=== PATIENT | male | born 1955 | race Caucasian/White ===

== ENCOUNTER 2017-05-17 09:43 | Day surgery (SDC) | payer BC ==
[2017-05-17] MEDS ORDERED: Sodium Chloride 0.9% 10 ML Syringe FLUSH PRN (10:30)
[2017-05-17] MEDS ORDERED: Midazolam 1 MG/ML 2 ML SDV IV ONE (13:30)
[2017-05-17] MEDS ORDERED: Propofol 200 MG/20 ML SDV IV ONE (13:30)
[2017-05-17] MEDS ORDERED: Acetaminophen 500 MG Tab PO ONE (14:44)
[2017-05-17 15:26] VITALS: BP 128/82
--- NOTE | 2017-05-18 11:24 | OR ---
DATE OF OPERATION: 05/17/2017 SURGEON: Ambrocio Ravi MD PREOPERATIVE DIAGNOSIS: Cataract, right eye. POSTOPERATIVE DIAGNOSIS: Cataract, right eye. OPERATION PERFORMED: Phacoemulsification of cataract right eye with placement of an Jamil, model ZCB00, 20.0 diopter, foldable, posterior chamber intraocular lens. DISH MACHINE OPERATOR: None. DESCRIPTION OF PROCEDURE: Peribulbar anesthetic was performed using a mixture of 2% lidocaine with Wydase. The patient was prepped and draped in the usual fashion. A 3 mm fornix based conjunctival flap was performed at the 10 o'clock position. Hemostasis was obtained using diathermy, and a 2.8 mm grooved near clear corneal incision was then made. A stab incision was made into the anterior chamber at the 12 o'clock position and a second stab wound incision was made underlying the grooved near clear corneal incision. Viscoat was instilled into the anterior chamber, and a continuous tear capsulotomy was performed. Hydrodissection was accomplished with balanced salt solution, and the nucleus was removed in a divide and conquer fashion. The remaining cortical material was removed with the irrigation and aspiration unit. Viscoat was instilled into the anterior chamber, and an Jamil, model ZCB00, 20.0 diopter, foldable, posterior chamber intraocular lens was placed into the capsular bag, the haptics being positioned at the 1 and 7 o'clock positions. The residual Viscoat was removed from the anterior chamber and the anterior chamber reformed with balanced salt solution. The wound was checked and noted to be watertight. The conjunctiva was secured in its original position with diathermy. Alphagan and Maxitrol Ointment were then placed into the patient's eye. The patient tolerated the procedure well and it was without complication. Elapsed phacoemulsification time was 24.3 seconds. Postoperative instructions as related to activities as well as medications were reviewed with the patient. The patient was instructed to return to see me on the day following surgery for the first postoperative check. The patient was also instructed to contact me prior to that time if he were to have any problems. ADDENDUM: Because of minor patient discomfort, 0.3 mL of 1% non-preserved lidocaine was instilled into the anterior chamber. This resolved the patient's discomfort. /[id number] 2022 DEG/MODL CC: ERFEN CORONADO, OD [address] [place] [id number] MOUSTAPHA MANZO CNP [facility]ITAL[facility]
== END 2017-05-17 15:20 | disposition home or self-care (01) ==
LOC: FB.SDS 09:43
PROVIDERS: ATTEND Ophthalmology
DX: H26.9 Unspecified cataract (principal); E03.9 Hypothyroidism, unspecified; E78.5 Hyperlipidemia, unspecified; Z87.891 Personal history of nicotine dependence
CPT/HCPCS: 66984; A9270; C1780; J2250; J2704; J7050

== ENCOUNTER 2017-06-14 08:55 | Day surgery (SDC) | payer BC ==
[2017-06-14] MEDS ORDERED: Sodium Chloride 0.9% 10 ML Syringe FLUSH PRN (09:45)
[2017-06-14] MEDS ORDERED: Lidocaine 1% 30 ML SDV INJECT ONE (13:00)
[2017-06-14] MEDS ORDERED: Midazolam 1 MG/ML 2 ML SDV IV ONE (13:00)
[2017-06-14] MEDS ORDERED: Propofol 200 MG/20 ML SDV IV ONE (13:00)
[2017-06-14 13:55] VITALS: BP 126/91
--- NOTE | 2017-06-15 09:37 | OR ---
DATE OF OPERATION: 06/14/2017 SURGEON: Ambrcoio Ravi MD PREOPERATIVE DIAGNOSIS: Cataract left eye. POSTOPERATIVE DIAGNOSIS: Same. OPERATION PERFORMED: Phacoemulsification of cataract left eye with placement of an Jamil, model ZCB00, 20.0 diopter, foldable, posterior chamber intraocular lens. CLINICAL OPERATIONS LEADER: None. DESCRIPTION OF PROCEDURE: Peribulbar anesthetic was performed using a mixture of 2% lidocaine with Wydase. The patient was prepped and draped in the usual fashion. A 3 mm fornix based conjunctival flap was performed at the 10 o'clock position. Hemostasis was obtained using diathermy, and a 2.8 mm grooved near clear corneal incision was then made. A stab incision was made into the anterior chamber at the 12 o'clock position and a second stab wound incision was made underlying the grooved near clear corneal incision. Viscoat was instilled into the anterior chamber, and a continuous tear capsulotomy was performed. Hydrodissection was accomplished with balanced salt solution, and the nucleus was removed in a divide and conquer fashion. The remaining cortical material was removed with the irrigation and aspiration unit. Viscoat was instilled into the anterior chamber, and an Jamil, model ZCB00, 20.0 diopter, foldable, posterior chamber intraocular lens was placed into the capsular bag, the haptics being positioned at the 1 and 7 o'clock positions. The residual Viscoat was removed from the anterior chamber and the anterior chamber reformed with balanced salt solution. The wound was checked and noted to be watertight. The conjunctiva was secured in its original position with diathermy. Alphagan and Maxitrol Ointment were then placed into the patient's eye. The patient tolerated the procedure well and it was without complication. Elapsed phacoemulsification time was 19.9 seconds. Postoperative instructions as related to activities as well as medications were reviewed with the patient. The patient was instructed to return to see me on the day following surgery for the first postoperative check. The patient was also instructed to contact me prior to that time if he were to have any problems. ADDENDUM: Because of minor patient discomfort, 0.2 mL of a mixture of lidocaine, phenylephrine, and balanced salt solution were instilled into the anterior chamber. This resolved the discomfort. /[id number] [id number] DEG/MODL CC: SHY HARP NP MTDD
== END 2017-06-14 14:11 | disposition home or self-care (01) ==
LOC: FB.SDS 08:55
PROVIDERS: ATTEND Ophthalmology
DX: H26.9 Unspecified cataract (principal); E03.9 Hypothyroidism, unspecified; E78.5 Hyperlipidemia, unspecified; Z79.82 Long term (current) use of aspirin; Z79.899 Other long term (current) drug therapy; Z87.891 Personal history of nicotine dependence
CPT/HCPCS: 66984; C1780; J2250; J2704; J7050